=== PATIENT | female | born 2000 | race Caucasian/White ===

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

== ENCOUNTER 2020-08-21 02:16 | Outpatient (CLI) | payer OTHER, SELFPAY ==
[2020-08-21 13:25] LABS: Abs Immature Grans 0.01 10^3/uL (0.0-0.06); Absolute Basophil Count 0.04 10^3/uL (0.0-0.2); Absolute Eosinophil Count 0.05 10^3/uL (0.0-0.7); Absolute Lymphocyte Count 1.82 10^3/uL (1.2-3.4); Absolute Monocyte Count 0.38 10^3/uL (0.1-0.8); Absolute Neutrophil Count 4.35 10^3/uL (1.2-6.7); Basophils % 0.6; Eosinophils % 0.8; HCT 43.8 % (36.0-46.0); HGB 14.4 g/dL (11.2-15.7); Immature Grans % 0.2; Lymphocytes % 27.4; MCH 29.6 pg (27.0-33.0); MCHC 32.9 % (32.0-36.0); MCV 89.9 fL (80-95); MPV 10.5 fL (8.0-11.0); Monocytes % 5.7; Neutrophils % 65.3; Nucleated RBC 0 %; Platelet Count 221 10^3/uL (130-400); RBC 4.87 10^6/uL (3.93-5.22); RDW 11.9 % (11.7-14.6); RDW-SD 39.5 fL; WBC 6.65 10^3/uL (4.4-10.8)
[2020-08-21 14:19] LABS: Iron 244 ug/dL (50-170); Total Iron Binding Capacity 359 ug/dL (250-450)
[2020-08-21 15:04] LABS: ALT 23 U/L (14-59); AST 14 U/L (15-37); Albumin 4.3 g/dL (3.4-5.0); Alkaline Phosphatase 61 U/L (46-116); Anion Gap 9.2 mmol/L (3-11); BUN 15 mg/dL (7-18); Bilirubin, Total 0.8 mg/dL (0.2-1.0); CO2 26.8 mmol/L (21.0-32.0); CREATININE 0.8 mg/dL (0.55-1.02); Calcium 9.4 mg/dL (8.5-10.1); Chloride 101 mmol/L (98-107); Ferritin 46 ng/mL (8-252); Glucose 86 mg/dL (74-106); Sodium 137 mmol/L (136-145); TSH 2.48 uIU/mL (0.36-3.74); Total Protein 8.2 g/dL (6.4-8.2); Vitamin B12 474 pg/mL (193-986)
[2020-08-21 15:25] LABS: FREE T4 1.07 ng/dL (0.76-1.46)
[2020-08-21 21:20] LABS: T3,Free 2.9 pg/mL (2.8-5.3)
[2020-08-21 21:54] LABS: Thyroglobulin Antibody <15 U/mL (<=60); Thyroperoxidase Antibody 30 U/mL (<=60)
== END 2020-08-21 02:17 | disposition home or self-care (01) ==
LOC: LBO 02:16
PROVIDERS: PCP Naturopath; Visit Provider Naturopath
DX: E03.9 Hypothyroidism, unspecified (principal); R53.83 Other fatigue; Z86.39 Personal history of other endocrine, nutritional and metabolic disease
CPT/HCPCS: 36415; 80053; 82607; 82728; 83540; 83550; 84439; 84443; 84481; 85025; 86376; 86800

== ENCOUNTER 2023-04-10 10:38 | Outpatient (CLI) | payer OTHER, SELFPAY ==
--- NOTE | 2023-04-10 10:30 | RT.EKG_ITS ---
APPROVED REPORT Exam: Resting ECG Reason for Exam: RAYMOND Patient Location: O HR:83 bpm ECG Measurements Heart Rate 83 AXIS SD 145 P 50 QRSd 99 QRS 84 QT 390 T 40 QTc 459 Conclusion Sinus rhythm...normal P axis, V-rate 50- 99 Probable left atrial enlargement...P >50mS, <-0.10mV V1 RSR' in V1 or V2
== END 2023-04-10 10:39 | disposition home or self-care (01) ==
PROVIDERS: PCP Naturopath; Visit Provider Physician Assistant
DX: R07.9 Chest pain, unspecified (principal); R06.09 Other forms of dyspnea
CPT/HCPCS: 93010

== ENCOUNTER → 2023-04-12 14:18 | Outpatient (CLI) | payer OTHER, SELFPAY ==
--- NOTE | 2023-04-12 08:52 | DI.RAD_ITS ---
Exam(s) XR CHEST 2V PA LATERAL EXAM: XR CHEST 2V PA LATERAL CLINICAL HISTORY: DYSPNEA ON EXERTION, MONO EXPOSURE, R06.09 TECHNIQUE: 2D digital imaging was performed of the chest. Two images were obtained. PA and lateral views were obtained. COMPARISON: CR CHEST 2 VIEWS PA,LAT from 07/12/2014 FINDINGS: MEDIASTINUM: Normal. HEART: Normal. PULMONARY VASCULATURE: Normal. LUNGS: Clear. PLEURAL SPACE: No pleural effusion or pneumothorax. BONE:Within normal limits for the patient's age. OTHER FINDINGS:Normal. IMPRESSION: No acute pulmonary findings. DATA REPOSITORY: RADIATION DOSE DELIVERED:
== END ==
PROVIDERS: PCP Naturopath; Visit Provider Physician Assistant
DX: R06.09 Other forms of dyspnea (principal); Z20.828 Contact with and (suspected) exposure to other viral communicable diseases
CPT/HCPCS: 71046

== ENCOUNTER 2023-04-12 16:28 | Outpatient (CLI) | payer OTHER, SELFPAY ==
[2023-04-12 13:29] LABS: Abs Immature Grans 0.02 10^3/uL (0.0-0.06); Absolute Basophil Count 0.03 10^3/uL (0.0-0.2); Absolute Eosinophil Count 0.01 10^3/uL (0.0-0.7); Absolute Lymphocyte Count 1.72 10^3/uL (1.2-3.4); Absolute Monocyte Count 0.27 10^3/uL (0.1-0.8); Basophils % 0.7; Eosinophils % 0.2; HCT 41.3 % (36.0-46.0); Immature Grans % 0.5; Lymphocytes % 39.5; MCH 29.9 pg (27.0-33.0); MCHC 33.9 % (32.0-36.0); MCV 88 fL (80-95); MPV 11.1 fL (8.0-11.0); Monocytes % 6.2; Neutrophils % 52.9; Platelet Count 232 10^3/uL (130-400); RBC 4.68 10^6/uL (3.93-5.22); RDW 11.9 % (11.7-14.6); RDW-SD 38.1 fL; WBC 4.35 10^3/uL (4.4-10.8)
[2023-04-12 14:32] LABS: D-Dimer 236 ng/mlFEU (<500)
[2023-04-13 23:45] LABS: EBV DNA Detect/Quant, P Undetected IU/mL (Undetected)
== END 2023-04-12 16:29 | disposition home or self-care (01) ==
PROVIDERS: PCP Naturopath; Visit Provider Physician Assistant
DX: R06.09 Other forms of dyspnea (principal)
CPT/HCPCS: 36415; 87799; 85025; 85379